=== PATIENT | female | born 1955 | race Caucasian/White ===

== ENCOUNTER 2018-08-29 11:26 | Inpatient (IN) | payer OTHER ==
[2018-08-29] MEDS ORDERED: traMADol 50 MG TAB PO PRN (15:21)
[2018-08-29] MEDS ORDERED: FAMOTIDINE 20 MG TAB PO PRN (15:21)
[2018-08-29] MEDS ORDERED: FUROSEMIDE 20 MG TAB PO PRN (15:21)
[2018-08-29] MEDS ORDERED: ACET/CAFFEINE/BUTA FIORICET 1 EACH TAB PO PRN (15:21)
[2018-08-29] MEDS ORDERED: SENNOSIDES/DOCUSATE SODIUM TAB PO PRN (15:21)
--- NOTE | 2018-08-29 17:50 | GHP ---
POST ADMISSION PHYSICIAN EVALUATION AND REHABILITATION TREATMENT PLAN DATE OF ADMISSION: 08/29/2018 DATE OF EVALUATION: 08/29/2018 TIME OF EVALUATION: 1515 REFERRING FACILITY: [facility] REFERRING PHYSICIAN: Dr. Aguero IMPAIRMENT GROUP: [id number] DATE OF ONSET: 08/20/2018 CONSULTING PHYSICIANS: I do not believe there were any. REHABILITATION DIAGNOSIS: Debility, status post lumbar surgery. ETIOLOGIC DIAGNOSIS: Other nontraumatic spinal cord dysfunction. DATE OF SURGERY: 08/20/2018 HISTORY OF PRESENT ILLNESS: This patient came to [facility] on 08/20, for elective spinal surgery with a planned L3-4 diskectomy because of an L3-4 herniated disk which had happened in February. She had failed conservative therapy including an epidural steroid injection. She initially did well with the surgery, but in the postanesthesia care unit had left lower extremity weakness and numbness. An MRI scan showed a fluid collection causing central spinal stenosis, left foraminal narrowing, and compression of several nerve roots of the cauda equina. She returned to the operating room on the same day for wound exploration and an L2-3 hemilaminectomy. A CSF leak and hematoma were discovered. The CSF leak was repaired. She was maintained on bedrest for the next 2 days due to the CSF leak. She had a repeat MRI on 08/22/2018, which showed continued spinal stenosis. She had repeat surgery on 08/25/2018, for an L3 to L5 laminectomy and decompression with posterior lumbar interbody fusion. She had nausea and vomiting overnight suspicious for a CSF leak and so she remained on bed rest until 08/27/2018. Subsequently, she was able to participate in therapies and was medically stable. She had urinary retention during her hospitalization and had a Spring catheter, but this was subsequently removed and she has been voiding normally. She continues to have left lower extremity weakness. She has been using a left leg knee immobilizer. She reports that she has not walked farther than out of bed and around the bed. STUDIES AND LABS DURING HER STAY: I do not have a full list. Imaging is as described in HPI. There was a basic metabolic profile done on 08/20/2018, which was normal. A preoperative H and P includes a CBC from 06/11/2018, which was normal; a lipid panel from 03/12/2018, with a cholesterol of 198, an HDL of 87, and an LDL of 97. There was a normal EKG done on 08/12/2018. Hemoglobin A1c was 5.5 on 06/23/2018. PRECAUTIONS: She is a fall risk, and she has orthopedic precautions for the lumbar spine. ACTIVE COMORBIDITIES: She has no active tier 1, tier 2, or tier 3 comorbidities. PAST MEDICAL HISTORY: 1. Lumbar disk herniation with radiculopathy. 2. Rheumatoid arthritis. 3. Mari esophagus. 4. Postmenopausal hormone replacement therapy. 5. Varicella. 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 PAST SURGICAL HISTORY: 1. Appendectomy. 2. Carpal tunnel decompression in 2013. 3. Epidural steroid injection to the lumbar spine in June of 2018. 4. She denies any history of blood clots. PREHOSPITAL MEDICATIONS: 1. Tofacitinib 5 mg by mouth 2 times a day. 2. Leflunomide 20 mg by mouth every day. 3. Gabapentin 300 mg by mouth q.h.s. 4. Etodolac 400 mg by mouth 2 times a day. 5. Furosemide 20 mg by mouth q. day p.r.n. 6. Hydroxychloroquine 200 mg by mouth q. day. 7. Folic acid 1 mg by mouth q. day. 8. Valacyclovir 500 mg 2 times a day for 3 days p.r.n. 9. Estradiol 1 mg by mouth q. day. 10. Medroxyprogesterone 2.5 mg by mouth q. day. 11. Famotidine 40 mg by mouth b.i.d. ADMISSION MEDICATIONS: 1. Acetaminophen/caffeine/butalbital 1 p.o. q.4 hours p.r.n. 2. Acetaminophen 650 mg p.o. q.6 hours p.r.n. 3. Ascorbic acid 500 mg p.o. q. day. 4. Calcium carbonate 1 p.o. q. day. 5. Cholecalciferol 1000 units p.o. q. day. 6. Estradiol 1 mg p.o. q. day. 7. Famotidine 40 mg p.o. b.i.d. p.r.n. 8. Folic acid 1 mg p.o. q. day. 9. Furosemide 20 mg p.o. q. day p.r.n. 10. Medroxyprogesterone 2.5 mg p.o. q. day. 11. Gallaway-3 fatty acids 2000 mg p.o. q. day. 12. Senna/docusate 1 p.o. b.i.d. p.r.n. 13. Tramadol 50 mg p.o. q.6 hours p.r.n. ALLERGIES: There are no known drug allergies. PSYCHOSOCIAL HISTORY: She is . She lives with her . She works in a dental office. She is nonsmoker and does not use alcohol or other substances of abuse. FAMILY HISTORY: Noncontributory. There is no family history of blood clots. REVIEW OF SYSTEMS: She feels weak in the left leg. Her left knee had been buckling, but the most recent time that she stood up and bore weight it did not buckle. She has some tingling in the left foot. Pain symptoms that she had prior to her surgery have resolved, and her leg strength has been improving. Otherwise, she denies any weakness, numbness, or tingling. She does not have constipation. She had some diarrhea yesterday after using milk of magnesia. She has a good appetite. She has no nausea and has not vomited in the last 2 days. She is otherwise not in pain. Spring catheter was removed without complication, and she is voiding normally. She has no cough or dyspnea. There are no fevers or chills. She does not have chest pain or palpitations. She has mild joint pain returning to the MCP joints of her right hand. She says she has a combination of osteoarthritis and rheumatoid arthritis. She is sleeping well. Otherwise, a 10-point review of systems is negative. PHYSICAL EXAM: VITALS: Blood pressure is 130/69, heart rate is 77, respiratory rate is 18, oxygen saturation is 99% on room air, temperature is 36.9 degrees centigrade, her weight is 67.4 kg for a body mass index of 24.7. GENERAL: This is a well-nourished, well developed woman lying in bed dressed in street clothes. Cooperative and in no acute distress. HEENT: Extraocular movements are intact. She has upper lid lag when she blinks or closes her eyes on the right eye, but the right eye can close completely. Pupils are equal, round, and reactive to light. Mucous membranes are moist. Dentition is in good condition. She has an uncrowded airway, Mallampati class 2. NECK: Supple. HEART: There is a regular rate and rhythm with no murmurs, rubs, or gallops. LUNGS: Clear to auscultation bilaterally. ABDOMEN: Soft, nontender , nondistended with normoactive bowel sounds and no hepatosplenomegaly. EXTREMITIES: There is no cyanosis, clubbing, or edema. There is no ulnar deviation of the fingers or toes. She has an enlarged 2nd MCP joint of the right hand. Radial and dorsalis pedis pulses are 2+ bilaterally. NEUROLOGIC: She is alert and oriented x3. Cranial nerves 2-12 are grossly intact. Motor strength is grossly intact overall except for her left leg where the hip flexor is 3/5, quadriceps is 4/5, hamstring is 2 to 3 over 5, dorsiflexion is 4/5, and plantar flexion is 3/5. Deep tendon reflexes are globally hypoactive. SKIN: She has an incision over her lumbar spine, approximately 12 cm. It is stapled closed. There is no drainage, erythema, swelling, or purulence. CURRENT LEVEL OF FUNCTION PER THE PRE-ADMISSION SCREEN: Regarding diet, feeding and swallowing, she was on a regular diet. Dressing was done with supervision for the upper body and minimal assist for lower body. She needed minimal assist for logrolling in bed. Transfers were done with moderate assist. She used a front-wheeled walker and a left knee immobilizer. Balance was fair in sitting and poor in standing. Endurance was fair. She ambulated 15 feet with minimal assist using a front-wheeled walker. On today's exam, there are no significant changes from the pre-admission screen. IMPRESSION: This is a 62-year-old woman who had a history of an L3-L4 disk herniation in February of this year. She had conservative therapy including an epidural steroid injection and did not have relief of left leg pain, so she came to [facility] for an elective L3-L4 diskectomy. Surgery was complicated by a cerebrospinal fluid leak and hematoma formation which required repeat surgery. She continued to have symptoms of spinal and foraminal stenosis and had a third surgery, and ultimately she has had 3 major procedures on the spine; a left L3-L4 open diskectomy, an L2-L3 hemilaminectomy, and a posterior lumbar L4-L5 laminectomy and decompression with left facetectomy and posterior lumbar interbody fusion. Once she had recovered from all symptoms consistent with spinal cord compression, nerve root compression, and cerebrospinal fluid leak, she rapidly medically stabilized, had improvement in her strength, and was participating in rehabilitation. She is appropriate for inpatient rehabilitation. Her goal is to complete a rehabilitation stay and return home with her family and home health care versus outpatient services depending on her progress. For a safe discharge, she will need to achieve modified independence for activities of daily living and functional activities using the least restrictive device. She will need to demonstrate the ability to maintain spinal precautions during all activities. She will need to have adequate wound healing without infection. She may continue to require assistance for cooking, shopping, and household management. She will have therapy with Physical Therapy and Occupational Therapy for 90 minutes per day for each discipline on 5-7 days of the week. Her expected duration of stay is 10-14 days. It is anticipated that upon discharge she will continue to benefit from home health services including nursing, occupational therapy, and physical therapy. PLAN: 1. Debility, status post lumbar surgery with complications, with the final surgery on 08/25/2018, with improving left leg weakness. PT and OT to optimize mobility and activities of daily living. 2. Symptom management. She has the acetaminophen/caffeine/butalbital combination medication for headaches, and she has tramadol prescribed for pain. There is a laxative on board. She will be observed for any need for additional symptom management. 3. Rheumatoid arthritis. Per discharge instructions, medications are on hold for approximately 2 weeks, and these are hydroxychloroquine 200 mg b.i.d., leflunomide 20 mg daily, and tofacitinib 5 mg b.i.d. Resumption date for these medications is 09/08/2018. If she becomes symptomatic prior to that date, we will consider initiating these medications. Nonsteroidal anti-inflammatories are contraindicated until after her first postsurgical visit on September 15, 2018. 4. Postmenopausal state. Continue Estradiol as well as medroxyprogesterone. This raises a minor concern regarding thrombophilia due to the estrogen component. She will be observed for improved mobility. 5. 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 Famotidine has been prescribed at a high dose, 40 mg, but on a p.r.n. basis twice a day. She will be observed for symptoms and for need for this medication. 6. Prophylaxis. Without the specific risk factors of advanced age, malignancy , neurologic deficit, history of venous thromboembolism, or an anterior surgical approach, pharmacologic prophylaxis for venous thromboembolism is not recommended. She will have SCDs at night when she is in bed. /[id number]/MODL MTDD
--- NOTE | 2018-08-30 09:02 | SOAPPROG ---
SOAP Progress Note Assessment/Plan: Assessment: 1. Debility. Ms. status post lumbar surgery with complications requiring multiple surgeries with most recent surgery on 08/25/2019 with subsequent left lower extremity weakness. Physical occupational therapy to optimize mobilities and ADLs. 2. Pain management SC to minute thin/caffeine/butalbital for headaches. Tramadol for back and left lower extremity pain. 3. Bowel management-continue current bowel program. 4. Rheumatoid arthritis. Per discharge instructions medications on hold for approximately 2 weeks and these are hydroxychloroquine 200 mg twice daily, leflunomide 20 mg daily and tofactinib 5 mg twice daily. Resumption date for these medications is 09/08/2018. Watch for symptomatic flare-up of rheumatoid arthritis. Nonsteroidal anti-inflammatories are contraindicated until after her 1st postsurgical visit on September 15, 2008 5. Postmenopausal state. Continue estradiol and medroxyprogesterone this raises a minor concern regarding thrombo feel yet due to the estrogen component. She will be observed for improved mobility. 6. GERD with history of Mari's esophagus. Monitor for symptoms of dyspepsia. Subjective: She reports some dysuria and foul-smelling urine. She denies suprapubic or flank pain. She rates current pain level 2-3/10. She reports left lower extremity weakness is slowly improving and still has left foot drop. Objective: Vital Signs Temp Pulse Resp BP Pulse Ox 36.8 C 81 17 105/64 97 08/30/18 06:15 08/30/18 06:15 08/30/18 06:15 08/30/18 06:15 08/30/18 06:15 08/29/18 08/30/18 08/31/18 05:59 05:59 05:59 Intake Total 600 Balance 600 Physical Exam - Physical Exam General Appearance: WD/WN, alert, no apparent distress Respiratory: lungs clear, normal breath sounds Abdomen: non-tender, soft Extremities: No swelling, No Erika's sign (Left foot drop with 2-/5 ankle dorsiflexors.) ICD10 Worksheet Patient Problems: Problems Problem Status Onset Lumbar spinal cord injury Acute
[2018-08-30] MEDS: FOLIC ACID 1 MG TAB PO SCH (09:39)
[2018-08-30] MEDS: CHOLECALCIFEROL VIT D3 1,000 UNITS TAB PO SCH (09:39)
[2018-08-30] MEDS: CALCIUM CARB W/VIT D 500 MG TAB PO SCH (09:39)
[2018-08-30] MEDS: ASCORBIC ACID 500 MG TAB PO SCH (09:40)
[2018-08-30] MEDS: OMEGA-3 FATTY ACIDS 1,000 MG CAP PO SCH (09:41)
[2018-08-30] MEDS: ESTRADIOL 1 MG TAB PO SCH (09:45)
[2018-08-30] MEDS: ACETAMINOPHEN 325 MG TAB PO PRN (19:50)
[2018-08-30] MEDS: SULFAMETHOX/TMP 800/160 MG 1 TAB PO SCH (22:38)
[2018-08-31] MEDS: OMEGA-3 FATTY ACIDS 1,000 MG CAP PO SCH (07:57)
[2018-08-31] MEDS: CHOLECALCIFEROL VIT D3 1,000 UNITS TAB PO SCH (07:57)
[2018-08-31] MEDS: FOLIC ACID 1 MG TAB PO SCH (07:57)
[2018-08-31] MEDS: SULFAMETHOX/TMP 800/160 MG 1 TAB PO SCH ×2 (07:57→20:30)
[2018-08-31] MEDS: ASCORBIC ACID 500 MG TAB PO SCH (07:57)
[2018-08-31] MEDS: CALCIUM CARB W/VIT D 500 MG TAB PO SCH (07:57)
[2018-08-31] MEDS: ESTRADIOL 1 MG TAB PO SCH (07:58)
--- NOTE | 2018-08-31 08:36 | SOAPPROG ---
SOAP Progress Note Assessment/Plan: Assessment: 1. Debility. Ms. status post lumbar surgery with complications requiring multiple surgeries with most recent surgery on 08/25/2019 with subsequent left lower extremity weakness. Physical occupational therapy to optimize mobilities and ADLs. MILD LEFT FOOT DROP. PATIENT ADVISED TO PERFORM HEEL CORD STRETCHING WITH TOWEL OR THERA-BAND SEVERAL TIMES PER DAY. 2. Pain management SC to minute thin/caffeine/butalbital for headaches. Tramadol for back and left lower extremity pain. 3. Bowel management-continue current bowel program. 4. Rheumatoid arthritis. Per discharge instructions medications on hold for approximately 2 weeks and these are hydroxychloroquine 200 mg twice daily, leflunomide 20 mg daily and tofactinib 5 mg twice daily. Resumption date for these medications is 09/08/2018. Watch for symptomatic flare-up of rheumatoid arthritis. Nonsteroidal anti-inflammatories are contraindicated until after her 1st postsurgical visit on September 15, 2008 5. Postmenopausal state. Continue estradiol and medroxyprogesterone this raises a minor concern regarding thrombo feel yet due to the estrogen component. She will be observed for improved mobility. 6. GERD with history of Mari's esophagus. Monitor for symptoms of dyspepsia. 7. MYOFASCIAL PAIN-PATIENT ADVISED THAT SHE MAY DEVELOP INCREASED BACK PAIN AND/ OR SPASMS OF THE LUMBAR PARASPINAL MUSCLES HER ACTIVITY LEVEL INCREASES. SHE CAN TRY AND ICE PACK 20 MIN SEVERAL TIMES A DAY OR ROBAXIN 500 TWICE DAILY IF BACK PAIN AND/OR SPASMS BECOME AN ISSUE. 8. HYPERTENSION-BLOOD PRESSURE AND RUNNING A LITTLE HIGH THIS MORNING AT 154/ 90. WILL DISCUSS WITH NURSING TO RECHECK AT NOON 08/31/18 08:34 08/31/18 08:37 Subjective: She reports her dysuria has resolved. She had some foul-smelling urine yesterday which she states also resolved. She denies suprapubic pain or flank pain. Denies frequency or urgency. Objective: Vital Signs Temp Pulse Resp BP Pulse Ox 37.2 C 113 H 18 154/90 H 95 08/30/18 20:00 08/30/18 20:00 08/30/18 20:00 08/30/18 20:00 08/30/18 20:00 08/30/18 08/31/18 09/01/18 05:59 05:59 05:59 Intake Total 600 1140 Output Total 150 Balance 600 990 Physical Exam - Physical Exam General Appearance: WD/WN, alert, no apparent distress Respiratory: chest non-tender, lungs clear Abdomen: non-tender, soft Back: Other (Slight increased tone of the right and left lumbar paraspinals.), No CVA tenderness Skin: other (Lumbar incision tacho in place, healing well, no erythema or drainage.) Extremities: No swelling, No Erika's sign Neuro/Psych: motor weakness (Left foot drop 3-/5 ankle dorsiflexors.) ICD10 Worksheet Patient Problems: Problems Problem Status Onset Lumbar spinal cord injury Acute
[2018-08-31] MEDS: ACETAMINOPHEN 325 MG TAB PO PRN (20:30)
[2018-09-01] MEDS: CALCIUM CARB W/VIT D 500 MG TAB PO SCH (07:47)
[2018-09-01] MEDS: ASCORBIC ACID 500 MG TAB PO SCH (07:47)
[2018-09-01] MEDS: FOLIC ACID 1 MG TAB PO SCH (07:47)
[2018-09-01] MEDS: SULFAMETHOX/TMP 800/160 MG 1 TAB PO SCH ×2 (07:47→20:24)
[2018-09-01] MEDS: OMEGA-3 FATTY ACIDS 1,000 MG CAP PO SCH (07:47)
[2018-09-01] MEDS: ESTRADIOL 1 MG TAB PO SCH (07:48)
[2018-09-01] MEDS: CHOLECALCIFEROL VIT D3 1,000 UNITS TAB PO SCH (07:48)
[2018-09-01] MEDS: ACETAMINOPHEN 325 MG TAB PO PRN ×2 (07:51→20:24)
--- NOTE | 2018-09-01 11:26 | SOAPPROG ---
SOAP Progress Note Assessment/Plan: Assessment: Debility, status post lumbar surgery with complications, with the final surgery on 08/25/2018, with improving left leg weakness. * Initial functional independence measure is 91 on 09/01/2018. Bed mobility and transfers require standby assistance. She ambulated 50 ft in a step to pattern with standby assist and a front wheeled walker. Shower transfer required supervision and bathing required only setup. She does grooming and hygiene independently, seated.; she needs close standby assist for standing. Upper body dressing requires supervision, lower body dressing requires supervision but assistance to hike her garments. Toileting requires close standby assist. PT and OT to optimize mobility and activities of daily living. Symptom management. Adequate pain control with very occasional tramadol, and acetaminophen to 3 times a day. No headache, nausea or vomiting. Minor wound dehiscence. No intervention is indicated. Monitor for signs or symptoms of infection. UTI. Continue Bactrim 3 days; discontinue after 09/02/2018. Symptomatically has responded. Rheumatoid arthritis. Per discharge instructions, medications are on hold for 2 weeks, and these are hydroxychloroquine 200 mg b.i.d., leflunomide 20 mg daily , and tofacitinib 5 mg b.i.d. Resumption date for these medications is 2017. If she becomes symptomatic prior to that date, we will consider initiating these medications. Nonsteroidal anti-inflammatories are contraindicated until after her first postsurgical visit on September 15, 2018. Postmenopausal state. Continue Estradiol as well as medroxyprogesterone. This raises a minor concern regarding thrombophilia due to the estrogen component. She will be observed for improved mobility. 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 Famotidine has been prescribed at a high dose, 40 mg, but on a p.r.n. basis twice a day. She will be observed for symptoms and for need for this medication. Prophylaxis. Without the specific risk factors of advanced age, malignancy, neurologic deficit, history of venous thromboembolism, or an anterior surgical approach, pharmacologic prophylaxis for venous thromboembolism is not recommended. She will have SCDs at night when she is in bed. DISPOSITION: Attended staffing, 15 min. Discussed with case management, nursing, dietitian, PT, OT. Lives home with her . With leg weakness and recent controlled fall, she needs adequate time to recover strength and improve her ambulation. Discharge date set for 09/09/2018. 09/01/18 11:37 Subjective: Had a fall in the kitchen while doing a kitchen activity with OT. Her left leg felt weak and she slowly lowered down in control. There was no injury. Otherwise without complaints. Objective: Vital Signs Temp Pulse Resp BP Pulse Ox 37.3 C 103 H 18 132/73 H 98 08/31/18 20:00 08/31/18 20:00 08/31/18 20:00 08/31/18 20:00 08/31/18 20:00 08/31/18 09/01/18 09/02/18 05:59 05:59 05:59 Intake Total 1140 950 Output Total 150 Balance 990 950 - Time Spent With Patient Time Spent With Patient: Greater than 35 min floor time today, including more than 50% of time in coordination of care during staffing meeting, and counseling patient. Physical Exam - Physical Exam General Appearance: WD/WN, alert, no apparent distress Respiratory: No respiratory distress, No accessory muscle use Cardiac/Chest: No edema Skin: normal color, warm/dry, other (Lumbar spine incision clean dry and intact. At the middle of the incision there is an area where the left side of the incision is not held by the staple. There is mild eschar at the base of a 2 mm open area. There is no erythema or purulence.) Extremities: No calf tenderness Neuro/Psych: alert, normal mood/affect, oriented x 3 ICD10 Worksheet Patient Problems: Problems Problem Status Onset Lumbar spinal cord injury Acute
[2018-09-01] MEDS ORDERED: MAGNESIUM HYDROXIDE 30 ML UDCUP PO PRN (15:50)
[2018-09-01] MEDS ORDERED: SENNOSIDES/DOCUSATE SODIUM TAB PO PRN (15:50)
[2018-09-02] MEDS: FOLIC ACID 1 MG TAB PO SCH (08:14)
[2018-09-02] MEDS: CHOLECALCIFEROL VIT D3 1,000 UNITS TAB PO SCH (08:14)
[2018-09-02] MEDS: ESTRADIOL 1 MG TAB PO SCH (08:14)
[2018-09-02] MEDS: SULFAMETHOX/TMP 800/160 MG 1 TAB PO SCH ×2 (08:14→21:14)
[2018-09-02] MEDS: ASCORBIC ACID 500 MG TAB PO SCH (08:14)
[2018-09-02] MEDS: OMEGA-3 FATTY ACIDS 1,000 MG CAP PO SCH (08:14)
[2018-09-02] MEDS: CALCIUM CARB W/VIT D 500 MG TAB PO SCH (08:14)
--- NOTE | 2018-09-02 12:28 | PDOREHIP ---
Admission [facility] - Admission - 3 Day Assessment Period Admission Date/Day 1: 08/29/18 Day 2: 08/30/18 Day 3: 08/31/18 - Active Diagnoses Comorbidities and Co-existing Conditions at Admission: 78067. None of the Above - Skin Conditions Unhealed Pressure Ulcer (1 or more/Stage 1 or >)-Admission: 0. No # Stage 1 Pressure Ulcers-Admission: 0 # Stage 2 Pressure Ulcers-Admission: 0 # Stage 3 Pressure Ulcers-Admission: 0 # Stage 4 Pressure Ulcers-Admission: 0 # Unstageable Pressure Ulcers (Non-remove Dress)-Admission: 0 # Unstageable Pressure Ulcers (Slough/Eschar)-Admission: 0 # Unstageable Pressure Ulcers (Deep Tissue Injury)-Admission: 0 Discharge [facility] - Discharge - 3 Day Assessment Period 2 Days Prior to Anticipated Discharge Date: 09/07/18 1 Day Prior to Anticipated Discharge Date: 09/08/18 Anticipated Discharge Date: 09/09/18
--- NOTE | 2018-09-02 14:08 | SOAPPROG ---
SOAP Progress Note Assessment/Plan: Assessment: Debility, status post lumbar surgery with complications, with the final surgery on 08/25/2018, with improving left leg weakness. * Initial functional independence measure is 91 on 09/01/2018. Bed mobility and transfers require standby assistance. She ambulated 50 ft in a step to pattern with standby assist and a front wheeled walker. Shower transfer required supervision and bathing required only setup. She does grooming and hygiene independently, seated; she needs close standby assist for standing. Upper body dressing requires supervision, lower body dressing requires supervision but assistance to hike her garments. Toileting requires close standby assist. * Continue PT and OT to optimize mobility and activities of daily living. Symptom management. Adequate pain control with very occasional tramadol, and acetaminophen to 3 times a day. No headache, nausea or vomiting. Minor wound dehiscence. No intervention is indicated. Monitor for signs or symptoms of infection. Rheumatoid arthritis. Per discharge instructions, medications are on hold for 2 weeks, and these are hydroxychloroquine 200 mg b.i.d., leflunomide 20 mg daily , and tofacitinib 5 mg b.i.d. Resumption date for these medications is 2017. If she becomes symptomatic prior to that date, we will consider initiating these medications. Nonsteroidal anti-inflammatories are contraindicated until after her first postsurgical visit on September 15, 2018. Postmenopausal state. Continue Estradiol as well as medroxyprogesterone. This raises a minor concern regarding thrombophilia due to the estrogen component. She will be observed for improved mobility. 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 Famotidine has been prescribed at a high dose, 40 mg, but on a p.r.n. basis twice a day. She will be observed for symptoms and for need for this medication. UTI. Continue Bactrim 3 days; discontinue after 09/02/2018. Symptomatically has responded. Prophylaxis. Without the specific risk factors of advanced age, malignancy, neurologic deficit, history of venous thromboembolism, or an anterior surgical approach, pharmacologic prophylaxis for venous thromboembolism is not recommended. Discontinue SCDs 09/02/2018 due to discomfort and interfering with sleep. She should ambulate to meals and therapy session. DISPOSITION: Lives home with her . With leg weakness and recent controlled fall, she needs adequate time to recover strength and improve her ambulation. Discharge date set for 09/09/2018. JUSTIFICATION FOR WALKER: This patient has a mobility limitation that significantly impairs 1 or more mobility related ADLs in the home. She can safely use a walker. Her functional mobility deficit cannot be resolved with a cane. 09/02/18 14:29 Subjective: Complains of discomfort from the sequential compression devices at night. They interfere with sleep. This morning her right foot had swelling which resolved after she took the device off. Otherwise without complaints. Mobility is improving and she is walking further each day. Objective: Vital Signs Temp Pulse Resp BP Pulse Ox 37.0 C 89 18 112/69 95 09/02/18 07:42 09/02/18 07:42 09/02/18 07:42 09/02/18 07:42 09/02/18 07:42 09/01/18 09/02/18 09/03/18 05:59 05:59 05:59 Intake Total 950 1250 320 Output Total 450 550 Balance 950 800 -230 Physical Exam - Physical Exam General Appearance: WD/WN, alert, no apparent distress Respiratory: No respiratory distress, No accessory muscle use Cardiac/Chest: No edema Neuro/Psych: no motor/sensory deficits, alert, normal mood/affect, oriented x 3 ICD10 Worksheet Patient Problems: Problems Problem Status Onset Lumbar spinal cord injury Acute
[2018-09-02 20:41] VITALS: BP 137/84
--- NOTE | 2018-09-02 21:09 | PDOREHIP ---
Admission [facility] - Admission - 3 Day Assessment Period Admission Date/Day 1: 08/29/18 Day 2: 08/30/18 Day 3: 08/31/18 - Active Diagnoses Comorbidities and Co-existing Conditions at Admission: 09951. None of the Above Discharge [facility] - Discharge - 3 Day Assessment Period 2 Days Prior to Anticipated Discharge Date: 09/07/18 1 Day Prior to Anticipated Discharge Date: 09/08/18 Anticipated Discharge Date: 09/09/18 - Discharge Skin Conditions Unhealed Pressure Ulcer (1 or more/Stage 1 or >)-Discharge: 0. No # Stage 1 Pressure Ulcers-Discharge: 0 # Stage 2 Pressure Ulcers-Discharge: 0 # of These Stage 2 Pressure Ulcers Present on Admission: 0 # Stage 3 Pressure Ulcers-Discharge: 0 # of These Stage 3 Pressure Ulcers Present on Admission: 0 # Stage 4 Pressure Ulcers-Discharge: 0 # of These Stage 4 Pressure Ulcers Present on Admission: 0 # Unstageable Pressure Ulcers (Non-remove Dress)-Discharge: 0 # These Unstageable Pressure Ulcers (NRD)-Present on Admit: 0 # Unstageable Pressure Ulcers (Slough/Eschar)-Discharge: 0 # These Unstageable Pressure Ulcers(Slough) Present on Admit: 0 # Unstageable Pressure Ulcers (Deep Tissue Injury)-Discharge: 0 # These Unstageable Pressure Ulcers (DTI) Present on Admit: 0
--- NOTE | 2018-09-03 12:37 | GDS ---
ADMISSION DIAGNOSIS: Debility status post lumbar microdiskectomy with complications requiring repeat surgeries. DISCHARGE DIAGNOSIS: Debility status post lumbar microdiskectomy with complications requiring repeat surgeries. OTHER DISCHARGE DIAGNOSES: 1. Possible cerebrospinal fluid leak. 2. Rheumatoid arthritis. 3. Urinary tract infection. CONSULTATIONS: There were none. COMPLICATIONS: There was a UTI and there was a possible CSF leak. PROCEDURES: There were none. HISTORY AND HOSPITAL COURSE: This patient was admitted from [facility] in [place] where she had undergone a microdiskectomy at the L3-L4 level for a disk herniation. Postoperatively, she developed left leg neuropathic symptoms and was found to have a CSF leak, as well as a hematoma which required repeat surgery, and ultimately she required a 3rd surgery including laminectomies and a posterior lumbar interbody fusion. She was medically stabilized and appropriate for inpatient rehabilitation. She did well initially in rehabilitation. Her functional independence measure on 09/01/2018, was 91, which was consistent with assisted living level of care. She required standby assist for bed mobility and transfers. She ambulated 50 feet in a step-to pattern with standby assist and a front-wheeled walker. She was requiring supervision for shower transfers, but bathing required only setup. She was independent with grooming and hygiene, seated. She needed close standby assist for standing. Upper body dressing required supervision, and lower body dressing required assistance for her to hike her garments. Toileting required close standby assist. She had minimal pain. She used very occasional tramadol, and she was using acetaminophen up to 3 times a day. She has a history of rheumatoid arthritis. Hydroxychloroquine 200 mg twice daily, leflunomide at 20 mg daily, and tofacitinib at 5 mg twice daily were held to optimize postsurgical healing. The plan for resumption was for 2017. She had very minor return of symptoms, but nothing requiring any analgesics other than acetaminophen and occasional tramadol during her stay. She had an episode of burning with urination. A urinalysis was consistent with UTI. She was treated with Bactrim for 3 days and had resolution of symptoms. On 09/02/2018, per instructions of her surgeon, suture in her mid back, which was at the site of a drain, was removed. She subsequently had drainage of clear pink-tinged fluid, which increased through the afternoon into the evening until she was saturating her clothing. At this point, she was transferred to [facility] for reassessment by her neurosurgeon regarding a possible draining seroma versus CSF leak. DISCHARGE PLAN: Discharge destination is [facility] in [place]. Condition is good, but concern regarding possible CSF leak. DIET: Regular. ACTIVITY: Ad tracy, but she requires standby assist for mobility related ADLs. MEDICATION UPON DISCHARGE: 1. Fioricet 1 p.o. q.4 hours p.r.n. headache. 2. Acetaminophen 650 mg p.o. q.6 hours p.r.n. pain. 3. Ascorbic acid 500 mg p.o. daily. 4. Calcium carbonate/vitamin-D 1 tablet p.o. daily. 5. Cholecalciferol 1000 units p.o. daily. 6. Estradiol 1 mg p.o. daily. 7. Famotidine 40 mg p.o. twice daily p.r.n. 8. Folic acid 1 mg p.o. daily. 9. Furosemide 20 mg p.o. daily p.r.n. 10. Medroxyprogesterone 2.5 mg p.o. daily. 11. Foster-3 fatty acids 2000 mg p.o. daily. 12. Senna/docusate 1 p.o. twice daily. 13. Tramadol 50 mg p.o. q.6 hours. ISSUES TO BE ADDRESSED AT FOLLOWUP: 1. Draining seroma versus CSF leak to be assessed and treated by [facility] at [facility]. 2. Debility in mobility related ADLs. It is hoped she can continue PT and OT at [facility] if she still has therapy needs after the seroma versus CSF leak is taking care of. She can return to [facility] inpatient rehabilitation. Her discharge goal prior to this acute discharge was 2017. 3. Rheumatoid arthritis with a plan to resume tofacitinib, leflunomide and hydroxychloroquine on 09/08/2018. Copy requested to: Dr. [facility] /[id number]/MODL MTDD
== END 2018-09-02 21:55 | disposition short-term general hospital (02) | DRG 945 ==
LOC: BREH 14:06
PROVIDERS: ADMIT Internal Medicine; ATTEND Internal Medicine
DX: R53.81 Other malaise (principal); Z98.1 Arthrodesis status; G96.0 Cerebrospinal fluid leak; N39.0 Urinary tract infection, site not specified; M06.9 Rheumatoid arthritis, unspecified; G51.0 Bell's palsy; K22.70 Barrett's esophagus without dysplasia; K21.9 Gastro-esophageal reflux disease without esophagitis; Z78.0 Asymptomatic menopausal state; Z79.890 Hormone replacement therapy
CPT/HCPCS: 97110-GO; 97110-GP; 97112-GP; 97116-GP; 97162-GP; 97166-GO; 97530-GO; 97530-GP; 97535-GO